=== PATIENT | male | born 1945 | race Caucasian/White ===

== ENCOUNTER 2022-03-09 06:09 | Inpatient (IN) | payer MEDICARE, OTHER ==
[2022-03-09] VITALS (8 sets, daily range): BP systolic 110–158; BP diastolic 54–73
[~2022-03-09] VITALS: Ht 172.7 cm; Wt 89.9 kg
[~2022-03-09 06:09] MED LIST: GLYB5TAB6 PO; HEPARIN SOD (PORCINE) 5000UNITS/ML 1ML VIAL/SYRINGE SQ ONE; NORV5TAB PO; PRAV40TA2 PO; THERTAB52 PO; VALS1TAB67 PO; VITA100093 PO; ceFAZolin SOD 2 GM in IV 1 EA IV ONE
[2022-03-09] MEDS ORDERED: LR 1,000 ML IV SCH ×2 (06:35→10:20)
[2022-03-09] MEDS ORDERED: LIDOCAINE 1% SDV 30ML VIAL As Ordered ONE (07:08)
[2022-03-09] MEDS ORDERED: BUPIVACAINE HCL 0.25% 30ML VIAL As Ordered ONE (07:08)
[2022-03-09] MEDS ORDERED: ROCURONIUM BROMIDE 50 MG/5 ML VIAL As Ordered ONE ×2 (07:19→08:45)
[2022-03-09] MEDS ORDERED: LIDOCAINE 2% 100MG/5ML SDV (FOR ANES.) As Ordered ONE (07:19)
[2022-03-09] MEDS ORDERED: propofoL 200 MG/20 ML VIAL As Ordered ONE (07:19)
[2022-03-09] MEDS ORDERED: MIDAZOLAM INJ 2MG/2ML VIAL (J2250 PER 1MG) As Ordered ONE (07:20)
[2022-03-09] MEDS ORDERED: fentaNYL 250 MCG/5 ML INJECTION As Ordered ONE (07:20)
[2022-03-09] MEDS ORDERED: GLUCOSE 4GM CHEW TABLET PO PRN (07:35)
[2022-03-09] MEDS ORDERED: PERCOCET 5MG/325MG TAB PO PRN ×2 (07:35)
[2022-03-09] MEDS ORDERED: DEXTROSE 50% 50 ML SYRINGE IV PRN (07:35)
[2022-03-09] MEDS ORDERED: GLUCAGON INJ 1MG VIAL SC PRN (07:35)
[2022-03-09] MEDS ORDERED: ONDANSETRON 4MG 2ML VIAL IV PRN ×2 (07:35→10:20)
[2022-03-09] MEDS ORDERED: LACRILUBE (AKWA TEARS) OPHTH OINT 3.5 GM As Ordered ONE (07:43)
[2022-03-09] MEDS ORDERED: HYDROmorphone HCL 2MG/ML 1ML VIAL As Ordered ONE (08:47)
[2022-03-09] MEDS: VALSARTAN 80 MG TAB (DIOVAN) PO SCH (09:00)
[2022-03-09] MEDS ORDERED: ONDANSETRON 4MG 2ML VIAL As Ordered ONE (09:33)
[2022-03-09] MEDS ORDERED: KETOROLAC 60MG 2ML VIAL As Ordered ONE (09:33)
[2022-03-09] MEDS ORDERED: ACETAMINOPHEN 1000MG 100ML IV BTL (OFIRMEV) (J0131 PER 10MG) As Ordered ONE (09:33)
[2022-03-09] MEDS ORDERED: SUGAMMADEX SODIUM 500 MG/5 ML VIAL (BRIDION) As Ordered ONE (10:01)
[2022-03-09] MEDS ORDERED: METOCLOPRAMIDE INJ 10MG/2ML VIAL (J2765 PER 1) As Ordered ONE (10:10)
[2022-03-09] MEDS ORDERED: fentaNYL 100 MCG/2 ML INJECTION IV PRN (10:20)
[2022-03-09] MEDS ORDERED: oxyCODONE 5MG TAB PO PRN (10:20)
[2022-03-09] MEDS ORDERED: HYDROMORPHONE HCL 0.5 MG/ 0.5 ML SYRINGE (J1170 PER 1) IV PRN (10:20)
[2022-03-09 11:25] LABS: HEMOGLOBIN 13.5 g/dl (13.5-17.5); MEAN CORPUSCULAR HEMOGLOBIN 31.4 pg (27.0-33.0); MEAN CORPUSCULAR HGB CONC 32.9 g/dl (32.0-36.5); MEAN CORPUSCULAR VOLUME 95.3 fl (80.0-96.0); PLATELET COUNT, AUTOMATED 166 10^3/uL (150-450); WHITE BLOOD COUNT 9.6 10^3/uL (4.0-10.0)
[2022-03-09] MEDS: INSULIN LISPRO (NovoLOG) PER UNIT SC SCH ×2 (12:00→17:30)
[2022-03-09 12:05] LABS: BLOOD UREA NITROGEN 22 MG/DL (7-18); CALCIUM LEVEL 8.7 MG/DL (8.8-10.2); CARBON DIOXIDE LEVEL 25 MEQ/L (21-32); CHLORIDE LEVEL 103 MEQ/L (98-107); CREATININE FOR GFR 1.19 MG/DL (0.70-1.30); GLOMERULAR FILTRATION RATE > 60.0 (>42); GLUCOSE, FASTING 187 MG/DL (70-100); POTASSIUM SERUM 4.6 MEQ/L (3.5-5.1); SODIUM LEVEL 135 MEQ/L (136-145)
[2022-03-09] MEDS: NS 1,000 ML IV SCH (13:10)
[2022-03-09] MEDS ORDERED: ACET1TAB55 PO (13:20)
[2022-03-09] MEDS ORDERED: HOME MED LIST COMPLETE! XX SCH (13:25)
[2022-03-09] MEDS: HEPARIN SOD (PORCINE) 5000UNITS/ML 1ML VIAL/SYRINGE SC SCH ×2 (14:35→21:17)
[2022-03-09] MEDS: ceFAZolin SOD 1 GM in D5W MINI-BAG PLUS 50 ML IV SCH (16:10)
[2022-03-09] MEDS ORDERED: INSULIN LISPRO (NovoLOG) PER UNIT SC SCH (21:00)
[2022-03-09] MEDS: DOCUSATE SODIUM 100MG CAPSULE PO SCH (21:16)
[2022-03-10] MEDS: ceFAZolin SOD 1 GM in D5W MINI-BAG PLUS 50 ML IV SCH (00:11)
[2022-03-10 01:41] VITALS: BP 124/62
[2022-03-10] MEDS: HEPARIN SOD (PORCINE) 5000UNITS/ML 1ML VIAL/SYRINGE SC SCH ×2 (06:24→14:00)
[2022-03-10 06:26] LABS: HEMOGLOBIN 12.3 g/dl (13.5-17.5); MEAN CORPUSCULAR HEMOGLOBIN 30.9 pg (27.0-33.0); MEAN CORPUSCULAR HGB CONC 32.4 g/dl (32.0-36.5); MEAN CORPUSCULAR VOLUME 95.5 fl (80.0-96.0); PLATELET COUNT, AUTOMATED 147 10^3/uL (150-450); RED BLOOD COUNT 3.98 10^6/uL (4.30-6.10); WHITE BLOOD COUNT 7.5 10^3/uL (4.0-10.0)
[2022-03-10] MEDS: INSULIN LISPRO (NovoLOG) PER UNIT SC SCH ×2 (07:30→13:53)
[2022-03-10] MEDS: NS 1,000 ML IV SCH (07:34)
[2022-03-10 07:46] LABS: BLOOD UREA NITROGEN 23 MG/DL (7-18); CALCIUM LEVEL 8.3 MG/DL (8.8-10.2); CARBON DIOXIDE LEVEL 27 MEQ/L (21-32); CHLORIDE LEVEL 104 MEQ/L (98-107); CREATININE FOR GFR 1.02 MG/DL (0.70-1.30); GLOMERULAR FILTRATION RATE > 60.0 (>42); GLUCOSE, FASTING 106 MG/DL (70-100); POTASSIUM SERUM 4.2 MEQ/L (3.5-5.1); SODIUM LEVEL 138 MEQ/L (136-145)
[2022-03-10 08:04] VITALS: BP 124/62
[2022-03-10] MEDS: DOCUSATE SODIUM 100MG CAPSULE PO SCH (08:04)
[2022-03-10] MEDS: VALSARTAN 80 MG TAB (DIOVAN) PO SCH (08:04)
[2022-03-10] MEDS: ACETAMINOPHEN TAB 650MG DOSE (2X325MG) PO PRN ×2 (08:54→13:48)
[2022-03-10] MEDS ORDERED: amLODIPine 5 MG TAB PO SCH (09:00)
[2022-03-10] MEDS ORDERED: PRAVASTATIN 20 MG TAB PO SCH (09:00)
[2022-03-10 10:00] VITALS: BP 116/52
[2022-03-10 14:00] VITALS: BP 113/52
[2022-03-10] MEDS ORDERED: CIPR-249 PO (16:05)
[2022-03-10] MEDS ORDERED: COLA100C5 PO (16:05)
[2022-03-10] MEDS ORDERED: PERCOCET PO (16:05)
== END 2022-03-10 17:11 | disposition home or self-care (01) | DRG 708 ==
LOC: M OR 06:09 → M MSPAV 13:00
PROVIDERS: ADMIT Urology; ATTEND Urology
PROC: 8E0W4CZ Robotic Assisted Procedure of Trunk Region, Percutaneous Endoscopic Approach (ICD-10-PCS; 2022-03-09)
PROC: 0VT04ZZ Resection of Prostate, Percutaneous Endoscopic Approach (ICD-10-PCS; principal; 2022-03-09 07:30)
DX: C61 Malignant neoplasm of prostate (principal); Z79.899 Other long term (current) drug therapy; Z88.8 Allergy status to other drugs, medicaments and biological substances; I10 Essential (primary) hypertension; E78.00 Pure hypercholesterolemia, unspecified; E55.9 Vitamin D deficiency, unspecified